=== PATIENT | male | born 1965 | race Caucasian/White ===

== ENCOUNTER 2023-03-17 06:00 | Outpatient (RCR) | payer MEDICAID, SELFPAY | END 2023-03-21 23:59 | disposition home or self-care (01) | LOC: GPT 06:00 | PROVIDERS: Visit Provider Nurse Practitioner Occupational Health | DX: M54.9 Dorsalgia, unspecified (principal); G89.29 Other chronic pain | CPT/HCPCS: 97162 ==

== ENCOUNTER 2023-03-22 06:00 | Outpatient (RCR) | payer MEDICAID, SELFPAY | END 2023-04-21 23:59 | disposition home or self-care (01) | LOC: GPT 06:00 | PROVIDERS: Visit Provider Nurse Practitioner Occupational Health | DX: M54.9 Dorsalgia, unspecified (principal); G89.29 Other chronic pain | CPT/HCPCS: 97110 ==

== ENCOUNTER 2023-04-22 06:00 | Outpatient (RCR) | payer MEDICAID, SELFPAY | END 2023-05-20 23:59 | disposition home or self-care (01) | LOC: GPT 06:00 | PROVIDERS: Visit Provider Nurse Practitioner Occupational Health | DX: M54.9 Dorsalgia, unspecified (principal); G89.29 Other chronic pain | CPT/HCPCS: 97032; 97110 ==

== ENCOUNTER 2023-08-24 13:14 | Outpatient (CLI) | payer MEDICAID, SELFPAY ==
--- NOTE | 2023-08-24 13:34 | MR_ITS ---
WS: [id number] MRI LUMBAR SPINE NONCONTRAST TECHNIQUE: Sagittal T1, T2 and STIR imaging. Axial T1 and T2 imaging. CLINICAL INFORMATION: SPONDYLOSIS W/RADICULOPATHY,LUMBAR REGION COMPARISON: None. FINDINGS: Some images limited due to motion artifact. Mild lumbar curve. No acute compression. Multilevel degenerative disc disease with moderate spondylit ic changes lower thoracic and lumbar spine. Anterior hypertrophic changes in the lumbar spine. Promin ent epidural fat throughout the lumbar spine contributes to thecal sac narrowing. Small disc protrusion in the lower thoracic spine at T11-T12 with mild central canal stenosis and sli ght contact of the lower thoracic cord. L1-L2: Mild disc bulging. Moderate facet arthropathy. Mild narrowing of the thecal sac. L2-L3: Slight retrolisthesis. Mild disc bulging with osteophytic ridging. Moderate narrowing of the t hecal sac with prominent epidural fat. Moderate facet arthropathy. Narrowing of the RIGHT subarticula r recess. Mild bilateral foraminal narrowing RIGHT greater than LEFT. L3-L4: Shallow central disc protrusion with severe narrowing of the thecal sac. Impingement of the brown barticular recess. Crowding of the cauda equina nerve rootlets. Moderate facet arthropathy. Epidural fat contributes to stenosis. Small bilateral foraminal protrusions with moderate LEFT and mild RIGHT foraminal narrowing. L4-L5: Mild annular bulging. Slight effacement of the ventral thecal sac. Moderate facet arthropathy. Mild LEFT foraminal narrowing. L5-S1: Mild disc bulging with osteophytic ridging. Proximal foramen are patent. Mild facet arthropath y. Partially visualized T2 hyperintense lesion LEFT kidney with a heterogeneous appearance measuring 4.1 cm. This is indeterminate and incompletely evaluated. Renal neoplasm not excluded and recommend furt her evaluation with ultrasound and/or contrast-enhanced CT abdomen pelvis. Small central protrusions in the cervical spine with mild central canal stenosis. MR/MR lumbar spine wo con* [id number] IMPRESSION: 1. Mild lumbar curve. No acute compression. Prominent epidural fat contributes to thecal sac stenosis throughout the lumbar spine. 2. Partially visualized T2 hyperintense heterogeneous lesion LEFT kidney measu ring 4.1 cm. This is incompletely evaluated and renal cell carcinoma not exclud ed. Recommend further evaluation with ultrasound or contrast-enhanced CT abdome n pelvis. 3. Moderate central canal stenosis L2-3 and severe central canal stenosis L3-4 due to disc bulging in combination with facet arthropathy and ligamentum flavu m hypertrophy. Epidural fat also contributes to stenosis. 4. Mild central canal stenosis lower thoracic spine at T11-T12.Bilateral jared inal protrusions L3-4 with moderate LEFT and mild RIGHT foraminal narrowing. 5. Mild LEFT L4-5 foraminal narrowing.
== END 2023-08-24 13:15 | disposition home or self-care (01) ==
LOC: RAD 13:14
PROVIDERS: Visit Provider Nurse Practitioner Occupational Health
DX: M47.26 Other spondylosis with radiculopathy, lumbar region (principal); M48.061 Spinal stenosis, lumbar region without neurogenic claudication; M51.26 Other intervertebral disc displacement, lumbar region; M48.04 Spinal stenosis, thoracic region
CPT/HCPCS: 72148

== ENCOUNTER → 2023-09-14 13:44 | Outpatient (BNVA) | payer MEDICAID, SELFPAY | PROVIDERS: Referring Provider Nurse Practitioner Occupational Health; Visit Provider Orthopaedic Surgery | DX: M54.9 Dorsalgia, unspecified (principal) | CPT/HCPCS: 72110 ==

== ENCOUNTER 2023-09-16 11:10 | Outpatient (CLI) | payer MEDICAID, SELFPAY ==
[2023-09-16 11:24] VITALS: PULSE 70; RESP 18; O2SAT 96
[2023-09-16] MEDS: albuterol 2.5 mg/3 mL Neb INHALATION (11:24)
[2023-09-16 11:28] VITALS: PULSE 70
== END 2023-09-16 11:11 | disposition home or self-care (01) ==
LOC: RT 11:10
PROVIDERS: Visit Provider Nurse Practitioner Occupational Health
DX: R06.2 Wheezing (principal); R94.2 Abnormal results of pulmonary function studies
CPT/HCPCS: 94060; J7613

== ENCOUNTER 2024-05-26 13:27 | Outpatient (CLI) | payer MEDICAID, SELFPAY ==
--- NOTE | 2024-05-26 14:15 | USCV_ITS ---
Leonel Gonzalez Age: 58 Gender: M : 1965 Exam Date: 05/26/2024 13:49 Ordering Phys: Jabari Felder MD ([email or web address]) Technologist: Angel Parker Exam Location[place] [facility] [place]ication: sob BP: 160 / 94 HR: 77 Rhythm: Sinus Technical Quality: Adequate MEASUREMENTS (Male / Female) Normal Values 2D ECHO LV Diastolic Diameter PLAX 5.6 cm 4.2 - 5.9 / 3.9 - 5.3 cm IVS Diastolic Thickness 1.4 cm 0.6 - 1.0 / 0.6 - 0.9 cm IVS Systolic Thickness 2.2 cm LVPW Diastolic Thickness 1.4 cm 0.6 - 1.0 / 0.6 - 0.9 cm LVPW Systolic Thickness 2.3 cm LVOT Diameter 2.1 cm LV Ejection Fraction 2D Teich 85.1 % LV Ejection Fraction MOD 4C 55.1 % LV Ejection Fraction MOD 2C 65.2 % LV Ejection Fraction 2C AL 66.5 % LA Diameter 3.2 cm RA Systolic Volume 4C AL 76.0 ml RA Systolic Volume 4C MOD 72.9 ml LA Sys Volume AL 63.5 cm cubed LA Sys Volume Index AL 22.7 cm cubed/m squared Aorta at Sinotubular Diameter 2.4 cm IVC Diameter 2.0 cm M-MODE LA Ao Ratio MM 1.3 AV Cusp Separation MM 2.1 cm DOPPLER AV Peak Velocity 194.0 cm/s LVOT Peak Velocity 137.0 cm/s AV Area Cont Eq vti 2.9 cm squared AV Area Cont Eq pk 2.4 cm squared MV Peak Velocity 123.0 cm/s MV Area PHT 4.5 cm squared Mitral E to A Ratio 1.2 TV Peak Velocity 207.0 cm/s TR Peak Velocity 233.0 cm/s TR Peak Gradient 21.7 mmHg TR Mean Velocity 187.0 cm/s TR Mean Gradient 15.0 mmHg TR Velocity Time Integral 44.2 cm PV Peak Velocity 136.7 cm/s RV Ejection Time 0.3 s FINDINGS Left Ventricle Normal left ventricular size, systolic function and wall thickness, with no regional wall motion abnormalities. Left ventricular ejection fraction is estimated at 60 %. Grade I/IV diastolic dysfunction (abnormal relaxation filling pattern), normal to mildly elevated filling pressures. Right Ventricle The right ventricle is normal in size and function. Right Atrium The right atrium is normal in size. Left Atrium The left atrium is normal in size. Mitral Valve Structurally normal mitral valve without significant stenosis or prolapse. There is no mitral regurgitation. Aortic Valve Moderate aortic valve calcification. No aortic valve stenosis. Trace aortic valve regurgitation. Tricuspid Valve [id number] tricuspid valve regurgitation. Pulmonic Valve Structurally normal pulmonic valve without significant stenosis. There is no pulmonic regurgitation. Pericardium Normal pericardium without effusion. Aorta Normal ascending aorta dimension. IVC The inferior vena cava appears normal. CONCLUSIONS Normal left ventricular size, systolic function and wall thickness, with no regional wall motion abnormalities. Left ventricular ejection fraction is estimated at 60 %. Grade I/IV diastolic dysfunction (abnormal relaxation filling pattern), normal to mildly elevated filling pressures. Moderate aortic valve calcification. No aortic valve stenosis. Trace aortic valve regurgitation. There is no pericardial effusion. Right atrial pressure is around 5 mm of mercury. Jabari Felder MD (Electronically Signed) Final Date: 06 June 2024 13:00 S
== END 2024-05-26 13:28 | disposition home or self-care (01) ==
PROVIDERS: Visit Provider Internal Medicine Cardiovascular Disease
DX: R06.02 Shortness of breath (principal); R93.1 Abnormal findings on diagnostic imaging of heart and coronary circulation; I35.8 Other nonrheumatic aortic valve disorders; I07.1 Rheumatic tricuspid insufficiency
CPT/HCPCS: 93306